=== PATIENT | female | born 1950 | race Caucasian/White ===

== ENCOUNTER → 2016-06-28 | Outpatient (CLI) | payer OTHER ==
[~2016-06-28] MED LIST: ASPIR 8181 MG PO; CALCIUM600 MG PO; CELLCEPT DPS250 MG PO; CLARITIN DPS10 MG PO; CULTURELLE1 CAP PO; DAILY MULTIPLE1 EAC1 PO; HYDROCODONE 5MG/5 MG PO; LIPITOR DPS10 MG PO; MAG-OX400 MG PO; OMEGA 3 FISH O1 EACH PO; PROGRAF0.5 MG PO; TENORMIN-DPS25 MG PO
== END | disposition home or self-care (01) ==
LOC: RAD.S 08:09
DX: Z12.31 Encounter for screening mammogram for malignant neoplasm of breast (principal); N63 Unspecified lump in breast